=== PATIENT | male | born 2000 ===

== ENCOUNTER 2025-03-06 15:46 | Emergency (ER) | payer BC, SELFPAY ==
--- NOTE | ~2025-03-06 | CT_ITS ---
EXAMINATION: CTA brain carotid DATE: 03/06/2025 18:21 INDICATION: right sided neck pain TECHNIQUE: Computed tomographic angiography (CTA) of the head was performed without and with 100 mL O mnipaque-350 intravenous contrast. CTA of the neck was performed with intravenous contrast. Automated exposure control and iterative reconstruction technique were employed. The dose-length product was 1 734.05 mGy-cm. Maximum intensity projection and volume rendered 3D-reconstructions were created by patricia taylor technologist on a separate workstation. COMPARISON: None. FINDINGS: CT BRAIN: No acute large vessel infarct, intracranial hemorrhage, mass, or hydrocephalus. CTA HEAD: No large vessel occlusion, aneurysm, high flow vascular malformation, nidus or extravasation. Symmetr ic parenchymal enhancement. Patent cerebral veins. CTA NECK: Aortic arch and proximal great vessels: Bovine arch. Right common carotid, carotid bifurcation, and internal carotid artery: No plaque.There is 0% stenosi s of the proximal right internal carotid artery relative to normal distal artery lumen diameter (NASC ET criteria). Left common carotid, carotid bifurcation, and internal carotid artery: No plaque.There is 0% stenosis of the proximal left internal carotid artery relative to normal distal artery lumen diameter (NASCET criteria). Vertebral arteries: No significant plaque or stenosis. Vertebral arteries co-dominant. Other findings: Accessory ossicle versus old fracture fragment at the tip of the dens. IMPRESSION: No acute intracranial process. No large vessel intracranial occlusion, high-grade intracranial stenosis, or aneurysm. No carotid or vertebral artery occlusion, dissection, or significant stenosis. Reviewed, dictated and finalized at location K. IMPRESSION: No acute intracranial process. No large vessel intracranial occlusion, high-grade intracranial stenosis, or an eurysm. No carotid or vertebral artery occlusion, dissection, or significant stenosis.
--- OUTSIDE RECORDS SUMMARY | 2025-03-06 15:48 | XMS_ITS | Encounter Summary ---
Author Organization [facility] Address [address] [place] [address] Care Team Providers Care Scrap Baller Name Role Phone Unavailable Primary Care Provider Unavailabl e Encounter Details Date Type Department Care Team (Late st Contact Info) Description 2000 Outpatient Historical [facility] Pediatrics - [facility] 2002 [address] [facility] [address] [address] Agata Jessica MD 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
--- OUTSIDE RECORDS SUMMARY | 2025-03-06 15:48 | XMS_ITS | Continuity of Care Document ---
Author Organization [facility] Address [address] [place] [address] [address] [place] [address] Phone Care Team Providers Care School Administrator Name Role Phone Jessica Zeng Unavailable Unavailable Advance Directives Directive Yes / No Effective Date File Name No Information Encounters Encounter Description Practice Location Reason(s) For Visit Diagnoses Date Provider Providers Copied on Encounter [facility], [address] [place] [address] [address], [place], [place], [id number], [place] tel:[phone] [facility] No Information [address] [facility] [place] , [address], [place], [address], [place]. tel:[phone] Family History Family Member Type Diagnosis Age At Onset No Information Payers Payer name Insurance type Covered alliance party ID Authoriza tion(s) No Information Social History Type Description Quantity Date Captured Comments Sex Male Smoking Status No Information Chief Complaint And Reason For Visit No Information Reason For Referral Reason For Referral No Information History Of Present Illness Encounter Date Complaint History Of Prese nt Illness No Information Functional Status Date Functional Assessmen t No Information Instructions Date Instruction Additional Infor mation No Information Assessments Type Assessment Date No Information Patient Care Teams Name Effective Dates (start - stop) Status Members No Information
--- OUTSIDE RECORDS SUMMARY | 2025-03-06 15:48 | XMS_ITS | Clinical Summary ---
Author Organization [facility] Address [address] [place] [address] Care Team Providers Care Pluck Trimmer Name Role Phone Eduardo Dubose MD Primary Care Provider Allergies No known active allergies Medications HYDROcodone-madhav taminophen (NORCO) 5-325 mg per tabletIndicatio ns:Pain Take 1 tablet by mouth every 4 (four) hours as needed for pain 20 tablet 9 Active Additional Information Patient not taking.Reported on 08/01/2022 Active Problems No known active problems Medical History Medical History Date Comments Motion sickness on roller coaste rs and driving occasionally Social History Tobacco Use Types Packs/Day Years Used Date Smoking Tobacco: Never Smokeless Tobacco: Never Alcohol Use Standard Drinks/Week Comments Yes 0 (1 standard drink = 0.6 oz pur e alcohol) rarely 1 or 2 drinks a month Personal Safety Answer Date Recorded Getting School Help Needed Not on file 08/19 Sex and Gender Information Value Date Recorded Sex Assigned at Not on file Legal Sex Male 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 GLUING MACHINE OPERATOR Gender Identity Not on file Sexual Orientation Not on file Obstetrics History Last Filed Vital Signs Vital Sign Reading Time Taken Comments Blood Pressure 100/60 08/01/2022 10:25 AM ELECTRONIC GLUING MACHINE OPERATOR Pulse 70 08/01/2022 10:25 AM ELECTRONIC GLUING MACHINE OPERATOR Temperature 36.5 C (97.7 F) 08/01/2022 10:25 AM ELECTRONIC GLUING MACHINE OPERATOR Respiratory Rate 16 08/01/2022 10:25 AM ELECTRONIC GLUING MACHINE OPERATOR Oxygen Saturation 98% 08/01/2022 10:25 AM ELECTRONIC GLUING MACHINE OPERATOR Inhaled Oxygen Concentration - - Weight 86.2 kg (190 lb) 08/01/2022 10:25 AM ELECTRONIC GLUING MACHINE OPERATOR Height 182.9 cm (6') 08/01/2022 10:25 AM ELECTRONIC GLUING MACHINE OPERATOR Body Mass Index 25.77 08/01/2022 10:25 AM ELECTRONIC GLUING MACHINE OPERATOR Plan of Treatment Health Maintenance Due Date Last Done Comments Depression Screening 2000 Hepatitis C Screening 2000 DTaP/Tdap/Td Vaccine (2 - Tdap) 02/10/2011 2 Varicella Vaccines (1 of 2 - 13+ 2-dose series) 02/10/2013 HPV Vaccines (1 - Male 3-dos e series) 02/10/2015 Hepatitis B Screening 02/10/2018 Regular Well Visit/Exam 18-64 02/10/2018 Influenza Vaccine (#1) 2025 Pneumococcal vaccine <65 Aged Out No longer eligible based on patient's age to complete this topic Medical Devices Implanted Type Area Aircraft Cleaning Supervisor Device Identifier Shelf Expiration Date Model / Serial / Lot [employer]art[employer] Inc A-5200.10 Aptus 1.5mm 10mm Washer Twist Drill Hexadrive 4 Hand Cortical - [id number] Implanted:Qty: 1 on 03/18/2019 by Francisco Simmons MD at [facility] Right: Middle Finger [employer] Inc A-5200.10 / / Screw Bone 1.5mm 11mm Aptus Ti Herber Hand Hexadrive 4 - [id number] Implanted:Qty: 1 on 03/18/2019 by Francisco Simmons MD at [facility] [place] Right: Middle Finger [employer] A-5200.11 / / Insurance [employer] [facility] ANTHEM PREFERRED [employer] [place] [employer] [place] PATY PREFERRED Advance Directives For more information, please contact: [phone] * Full Code (Latest Code Status on File) Date Activated Date Inactivated Comments 03/18/2019 1:23 PM 03/18/2019 6:35 PM Care Teams Pluck Trimmer Relationship Specialty Start Date End Date Eduardo Dubose MD [address] [address] PCP - General 03/10/19
--- OUTSIDE RECORDS SUMMARY | 2025-03-06 15:48 | XMS_ITS | Referral Summary ---
Author Organization [facility] Address [address] [place] [address] Care Team Providers Care Negative Spotter Name Role Phone Eduardo Dubose MD Primary Care Provider Allergies No known active allergies Medications HYDROcodone-madhav taminophen (NORCO) 5-325 mg per tabletIndicatio ns:Pain Take 1 tablet by mouth every 4 (four) hours as needed for pain 20 tablet 9 Active Additional Information Patient not taking.Reported on 08/01/2022 Active Problems No known active problems Social History Tobacco Use Types Packs/Day Years [...] on file Legal Sex Male 4:01 AM BUFFERER Gender Identity Not on file Sexual Orientation Not on file Last Filed Vital Signs Vital Sign Reading Time Taken Comments Blood Pressure 100/60 08/01/2022 10:25 AM BUFFERER Pulse 70 08/01/2022 10:25 AM BUFFERER Temperature 36.5 C (97.7 F) 08/01/2022 10:25 AM BUFFERER Respiratory Rate 16 08/01/2022 10:25 AM BUFFERER Oxygen Saturation 98% 08/01/2022 10:25 AM BUFFERER Inhaled Oxygen Concentration - - Weight 86.2 kg (190 lb) 08/01/2022 10:25 AM BUFFERER Height 182.9 cm (6') 08/01/2022 10:25 AM BUFFERER Body Mass Index 25.77 08/01/2022 10:25 AM BUFFERER Plan of Treatment Not on file Medical Devices Implanted Type Area Senior Java Developer Device Identifier Shelf Expiration Date Model / Serial / Lot [employer] Inc A-5200.10 Aptus 1.5mm 10mm Washer Twist Drill Hexadrive 4 Hand Cortical - [id number] Implanted:Qty: 1 on 03/18/2019 by Francisco Simmons MD at [facility] Right: Middle Finger [employer] A-5200.10 / / Screw Bone 1.5mm 11mm Aptus Ti Herber Hand Hexadrive 4 - [id number] Implanted:Qty: 1 on 03/18/2019 by Francisco Simmons MD at [facility] [place] Right: Middle Finger [employer] Inc A-5200.11 / / Insurance [facility] [employer] [place] [employer] [place] ANTHEM PREFERRED Advance Directives For more information, please contact: [phone] * Full Code (Latest Code Status on File) Date Activated Date Inactivated Comments 03/18/2019 1:23 PM 03/18/2019 6:35 PM Care Teams Negative Spotter Relationship Specialty Start Date End Date Eduardo Dubose MD [address] [facility] [address] [place] [address] PCP - General 03/10/19
--- OUTSIDE RECORDS SUMMARY | 2025-03-06 15:48 | XMS_ITS | Clinical Summary ---
Author Organization [facility] Address [address] [place] [address] Care Team Providers Care Nutrition Coordinator Name Role Phone Unavailable Primary Care Provider Unavailabl e Medications No known medications Active Problems No known active problems Social History Tobacco Use Types Packs/Day Years Used Date Smoking Tobacco: Never Smokeless Tobacco: Never Tobacco Cessation:Counseling Given: No Sex and Gender Information Value Date Recorded Sex Assigned at Not on file Legal Sex Male 3:19 AM LEARNING DISABILITIES TEACHER Gender Identity Not on file Sexual Orientation Not on file Last Filed Vital Signs Vital Sign Reading Time Taken Comments Blood Pressure 107/72 09/03/2019 2:47 PM LEARNING DISABILITIES TEACHER Pulse 70 09/03/2019 2:47 PM LEARNING DISABILITIES TEACHER Temperature - - Respiratory Rate - - Oxygen Saturation - - Inhaled Oxygen Concentration - - Weight 74.8 kg (165 lb) 09/03/2019 2:47 PM LEARNING DISABILITIES TEACHER Height 182.9 cm (6') 09/03/2019 2:47 PM LEARNING DISABILITIES TEACHER Body Mass Index 22.38 09/03/2019 2:47 PM LEARNING DISABILITIES TEACHER Plan of Treatment Health Maintenance Due Date Last Done Comments HPV VACCINES (1 - Male 3-dose series) 02/10/2015 DTAP/TDAP/TD VACCINES (1 - Tdap) 02/10/2019 HEPATITIS B VACCINES (1 of 3 - 19+ 3-dose series) 01/30 INFLUENZA VACCINE (#1) 2025 Insurance BCBS BLUE ACCESS/TRUE BLUE PPO
--- OUTSIDE RECORDS SUMMARY | 2025-03-06 15:48 | XMS_ITS | Encounter Summary ---
Author Organization [facility] Address [address] [facility] Attn: [place] [address] Care Team Providers Care Community Sports Coordinator Name Role Phone Unavailable Primary Care Provider Unavailabl e Encounter Details Date Type Department Care Team (Late st Contact Info) Description 2000 Inpatient Historical Agata Jessica MD [address] [place] [address] Single liveborn, born in hospital, delivered without mention of delivery (Primary Dx) Social History Tobacco Use Types Packs/Day Years Used Date Smoking Tobacco: Never Assessed Sex and Gender Information Value Date Recorded Sex Assigned at Not on file 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
--- OUTSIDE RECORDS SUMMARY | 2025-03-06 15:48 | XMS_ITS | Encounter Summary ---
Author Organization [facility] Address [address] [place] [address] Care Team Providers Care Silverer Name Role Phone Unavailable Primary Care Provider Unavailabl e Encounter Details Date Type Department Care Team (Late st Contact Info) Description 2000 Outpatient Historical [facility] FOUNDRY ENGINEER - Medical [facility] [address] [facility] [address] [phone] Rylan Mora MD [address] [place] [address] Social History Tobacco Use Types Packs/Day Years Used Date Smoking Tobacco: Never Assessed Sex and Gender Information Value Date Recorded Sex Assigned at Not on file 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
[2025-03-06 15:51] VITALS: BP 122/70; PULSE 62; RESP 16; TEMP 36.6; O2SAT 100
--- OUTSIDE RECORDS SUMMARY | 2025-03-06 16:23 | XMS_ITS | Continuity of Care Document ---
Author Organization [facility] Address [address] [place] [address] [address] [place] [address] Phone Care Team Providers Care Credit Product Analyst Name Role Phone Jessica Zeng Unavailable Unavailable Advance Directives Directive Yes / No Effective Date File Name No Information Encounters Encounter Description Practice Location Reason(s) For Visit Diagnoses Date Provider Providers Copied on Encounter [facility], [address] [place] [address] [address], [place], [place], [address], [place] tel:[phone] [facility] [place] No Information [address] [facility] [place] , [address], [place], [address], [place]. tel:[phone] Family History Family Member Type Diagnosis Age At Onset No Information Payers Payer name Insurance type Covered republican ID Authoriza tion(s) No Information Social History [...]
--- OUTSIDE RECORDS SUMMARY | 2025-03-06 16:23 | XMS_ITS | Clinical Summary ---
Author Organization [facility] Address [address] [place] [address] Care Team Providers Care Social Security Benefits Interviewer Name Role Phone Eduardo Dubose MD Primary [...] on file Legal Sex Male 4:01 AM SAP ABAP DEVELOPER Gender Identity Not on file Sexual Orientation Not on file Obstetrics History Last Filed Vital Signs Vital Sign Reading Time Taken Comments Blood Pressure 100/60 08/01/2022 10:25 AM SAP ABAP DEVELOPER Pulse 70 08/01/2022 10:25 AM SAP ABAP DEVELOPER Temperature 36.5 C (97.7 F) 08/01/2022 10:25 AM SAP ABAP DEVELOPER Respiratory Rate 16 08/01/2022 10:25 AM SAP ABAP DEVELOPER Oxygen Saturation 98% 08/01/2022 10:25 AM SAP ABAP DEVELOPER Inhaled Oxygen Concentration - - Weight 86.2 kg (190 lb) 08/01/2022 10:25 AM SAP ABAP DEVELOPER Height 182.9 cm (6') 08/01/2022 10:25 AM SAP ABAP DEVELOPER Body Mass Index 25.77 08/01/2022 10:25 AM SAP ABAP DEVELOPER Plan of Treatment Health Maintenance Due Date [...] this topic Medical Devices Implanted Type Area Wood Buffer Device Identifier Shelf Expiration Date Model / Serial / Lot Medartis Inc A-5200.10 Aptus 1.5mm 10mm Washer Twist Drill Hexadrive 4 Hand Cortical - [id number] Implanted:Qty: 1 on 03/18/2019 by Francisco Simmons MD at [facility] Right: Middle Finger Med[employer] Inc A-5200.10 / / Screw Bone 1.5mm 11mm Aptus Ti Herber Hand Hexadrive 4 - [id number] Implanted:Qty: 1 on 03/18/2019 by Francisco Simmons MD at [facility] [place] Right: Middle Finger [employer] Inc A-5200.11 / / Insurance [employer] [facility] ANTHEM PREFERRED [facility] [place] [facility] [facility] [place] PATY PREFERRED Advance Directives For more information, please contact: [phone] * Full Code (Latest Code Status on File) Date Activated Date Inactivated Comments 03/18/2019 1:23 PM 03/18/2019 6:35 PM Care Teams Social Security Benefits Interviewer Relationship Specialty Start Date End Date Eduardo Dubose MD [address] [address] PCP - General 03/10/19
--- OUTSIDE RECORDS SUMMARY | 2025-03-06 16:23 | XMS_ITS | Encounter Summary ---
Author Organization [facility] Address [address] [place] [address] Care Team Providers Care Real Estate Asset Manager Name Role Phone Unavailable Primary Care Provider Unavailabl e Encounter Details Date Type Department Care Team (Late st Contact Info) Description 2000 Outpatient Historical [facility] GOLF CART ATTENDANT - Medical [facility] [address] [facility] [place] [address] [phone] Rylan Mora MD [address] [place] [address] Social History Tobacco Use Types Packs/Day Years Used Date Smoking Tobacco: Never Assessed Sex and Gender Information Value Date Recorded Sex Assigned at Not on file Legal Sex Male 3:19 AM ACCOUNTING METHODS ANALYST Gender Identity Not on file Sexual Orientation Not on file documented as of this encounter Plan of Treatment Not on file documented as of this encounter Visit Diagnoses Not on filedocumented in this encounter
--- OUTSIDE RECORDS SUMMARY | 2025-03-06 16:23 | XMS_ITS | Encounter Summary ---
Author Organization [facility] Address [address] [place] [address] Care Team Providers Care Administration Professional Name Role Phone Unavailable Primary Care Provider Unavailabl e Encounter Details Date Type Department Care Team (Late st Contact Info) Description 2000 Outpatient Historical [facility]s - [facility] 2002 [address] [facility] [address] [address] Agata Jessica MD 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
--- OUTSIDE RECORDS SUMMARY | 2025-03-06 16:23 | XMS_ITS | Encounter Summary ---
Author Organization [facility] Address [address] [facility] Attn: [place] [address] Care Team Providers Care Data Collection Technician Name Role Phone Unavailable Primary Care Provider Unavailabl e Encounter Details Date Type Department Care Team (Late st Contact Info) Description 2000 Inpatient Historical Agata Jessica MD [address] [place] [phone] Single liveborn, born in hospital, delivered without mention of delivery (Primary Dx) Social History Tobacco Use Types Packs/Day Years Used Date Smoking Tobacco: Never Assessed Sex and Gender Information Value Date Recorded Sex Assigned at Not on file 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
--- OUTSIDE RECORDS SUMMARY | 2025-03-06 16:23 | XMS_ITS | Referral Summary ---
Author Organization [facility] Address [address] [place] [address] Care Team Providers Care Supervisor Brew House Name Role Phone Eduardo Dubose MD Primary Care Provider [phone] Allergies No known active allergies Medications HYDROcodone-madhav [...] on file Legal Sex Male 4:01 AM SPORTS ADMINISTRATOR Gender Identity Not on file Sexual Orientation Not on file Last Filed Vital Signs Vital Sign Reading Time Taken Comments Blood Pressure 100/60 08/01/2022 10:25 AM SPORTS ADMINISTRATOR Pulse 70 08/01/2022 10:25 AM SPORTS ADMINISTRATOR Temperature 36.5 C (97.7 F) 08/01/2022 10:25 AM SPORTS ADMINISTRATOR Respiratory Rate 16 08/01/2022 10:25 AM SPORTS ADMINISTRATOR Oxygen Saturation 98% 08/01/2022 10:25 AM SPORTS ADMINISTRATOR Inhaled Oxygen Concentration - - Weight 86.2 kg (190 lb) 08/01/2022 10:25 AM SPORTS ADMINISTRATOR Height 182.9 cm (6') 08/01/2022 10:25 AM SPORTS ADMINISTRATOR Body Mass Index 25.77 08/01/2022 10:25 AM SPORTS ADMINISTRATOR Plan of Treatment Not on file Medical Devices Implanted Type Area Job Coach Device Identifier Shelf Expiration Date Model / Serial / Lot Medartis Inc A-5200.10 Aptus 1.5mm 10mm Washer Twist Drill Hexadrive 4 Hand Cortical - [id number] Implanted:Qty: 1 on 03/18/2019 by Francisco Simmons MD at [facility] Right: Middle Finger [employer] Inc A-5200.10 / / Screw Bone 1.5mm 11mm Aptus Ti Herber Hand Hexadrive 4 - [id number] Implanted:Qty: 1 on 03/18/2019 by Francisco Simmons MD at [facility] [place] Right: Middle Finger [employer] Inc A-5200.11 / / Insurance [facility] [place] [place] ANTHEM PREFERRED Advance Directives For more information, please contact: [phone] * Full Code (Latest Code Status on File) Date Activated Date Inactivated Comments 03/18/2019 1:23 PM 03/18/2019 6:35 PM Care Teams Supervisor Brew House Relationship Specialty Start Date End Date Eduardo Dubose MD [address] [facility] [address] [place] [address] PCP - General 03/10/19
--- OUTSIDE RECORDS SUMMARY | 2025-03-06 16:23 | XMS_ITS | Clinical Summary ---
Author Organization [facility] Address [address] [place] [address] Care Team Providers Care Underground Bolting Machine Operator Name Role Phone Unavailable Primary Care Provider Unavailabl e Medications No known medications Active Problems No known active problems Social History Tobacco Use Types Packs/Day Years Used Date Smoking Tobacco: Never Smokeless Tobacco: Never Tobacco Cessation:Counseling Given: No Sex and Gender Information Value Date Recorded Sex Assigned at Not on file Legal Sex Male 3:19 AM MANUFACTURING ENGINEERING INTERN Gender Identity Not on file Sexual Orientation Not on file Last Filed Vital Signs Vital Sign Reading Time Taken Comments Blood Pressure 107/72 09/03/2019 2:47 PM MANUFACTURING ENGINEERING INTERN Pulse 70 09/03/2019 2:47 PM MANUFACTURING ENGINEERING INTERN Temperature - - Respiratory Rate - - Oxygen Saturation - - Inhaled Oxygen Concentration - - Weight 74.8 kg (165 lb) 09/03/2019 2:47 PM MANUFACTURING ENGINEERING INTERN Height 182.9 cm (6') 09/03/2019 2:47 PM MANUFACTURING ENGINEERING INTERN Body Mass Index 22.38 09/03/2019 2:47 PM MANUFACTURING ENGINEERING INTERN Plan of Treatment Health Maintenance Due Date Last Done Comments HPV VACCINES (1 - Male 3-dose series) 02/10/2015 DTAP/TDAP/TD VACCINES (1 - Tdap) 02/10/2019 HEPATITIS B VACCINES (1 of 3 - 19+ 3-dose series) 01/30 INFLUENZA VACCINE (#1) 2025 Insurance BCBS BLUE ACCESS/TRUE BLUE PPO
--- NOTE | 2025-03-06 16:48 | ED.NECK ---
HPI - Neck Pain/Injury General Chief Complaint: Neck Pain/Injury Stated Complaint: neck pain Time Seen by Provider: 03/06/25 16:04 History of Present Illness HPI Narrative: 25-year-old male presents emergency department with family at bedside for right-sided neck pain. Patient states he woke up this morning and began developing right-sided neck pain. He describes the pain as a jolting sensation that radiates down his right arm. He states it is worse with right-sided neck rotation. He states he attempted to crack his neck which made the pain much worse and caused him to feel nauseated and lightheaded like he was going to pass out. Patient then took a nap and states the pain was worse after the nap. He denies injury or trauma. Denies focal weakness, bowel or bladder changes, saddle anesthesia. Related Data Allergies Allergy/AdvReac Type Severity Reaction Status Date / Time No Known Allergies Allergy Verified 03/06/25 15:55 Review of Systems Review of Systems: All systems reviewed & are unremarkable except as noted in HPI and below Exam Narrative: GENERAL: Well-appearing, well-nourished, and in no acute distress. HEAD: Normocephalic, atraumatic. EYES: PERRLA and EOMI. ENT: Nares clear, no rhinorrhea or epistaxis. Mucous membranes moist. NECK: Palpable muscle spasm to the right trapezius. Patient holding his right shoulder more elevated when compared to the left. Spasm increases when patient turns his neck to the right reports his right ear to right shoulder. No midline cervical spinous tenderness, crepitus, step-offs or deformities. CHEST: Clear to auscultation. No respiratory distress. HEART: Regular rate and rhythm. No murmur heard. Normal peripheral pulses. EXTREMITIES: Normal range of motion. No edema. SKIN: Warm, dry, no rash. NEURO: No focal deficits. Alert and oriented x4. Cranial nerves 2 through 12 grossly intact. Strength 5/5 in BUE and BLE. Sensation intact throughout. Course Vital Signs Vital signs: Vital Signs Temperature 97.9 F 03/06/25 15:51 Pulse Rate 62 03/06/25 15:51 Respiratory Rate 16 03/06/25 15:51 Blood Pressure 122/70 03/06/25 15:51 Pulse Oximetry 100 03/06/25 15:51 Oxygen Delivery Room Air 03/06/25 15:51 Temperature 97.9 F 03/06/25 15:51 Pulse Rate 62 03/06/25 15:51 Respiratory Rate 16 03/06/25 15:51 Blood Pressure 122/70 03/06/25 15:51 Pulse Oximetry 100 03/06/25 15:51 Oxygen Delivery Room Air 03/06/25 15:51 MDM - Neck Pain/Injury MDM Narrative Medical decision making narrative: 25-year-old presents emergency department for right-sided neck pain that started this morning after waking up. No injury or trauma. States he attempted to pop his neck and then felt as though he was going to pass out. He reports worsening pain with right-sided rotation of his neck. Vital signs are stable. Exam is notable for the above. 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 His lab work shows mild leukocytosis of 10.9. His chemistries are largely unremarkable. EKG shows sinus bradycardia with rate of 51 with sinus arrhythmia, normal NV interval, QRS duration, normal QTC, no ischemic changes. Patient is young and lean and I suspect his bradycardia is due to conditioning. CTA of the brain and carotid shows no acute intracranial process. There is no large vessel intracranial occlusion, high-grade intracranial stenosis or aneurysm. There is no carotid or vertebral artery occlusion, dissection or significant stenosis. Patient updated on results. He received Tylenol, Valium and lidocaine patch with improvement. Again presentation is consistent with spasmodic torticollis. Will send Flexeril, ibuprofen and lidocaine patches to the pharmacy. Advised follow-up with PCP, warm compresses and strict ED return precautions. He is agreeable with the plan verbalized understanding. Discharged in stable condition. Lab Data 03/06/25 17:22 03/06/25 17:22 Labs: Lab Results 03/06/25 03/06/25 Range/Units 17:22 17:22 WBC 10.9 H (4.5-10.0) K/mm3 RBC 5.45 (4.6-6.20) M/mm3 Hgb 16.3 (14.0-18.0) g/dL Hct 48.8 (42.0-52.0) % MCV 89.5 (80-100) fl MCH 29.9 (26-34) pg MCHC 33.4 (32-36) g/dl RDW 12.9 (11.5-14.5) % Plt Count 207 (150-375) k/mm3 MPV 11.1 H (7.4-10.4) fl Immature Gran % (Auto) 0.6 H (0-0.5) % Neut % (Auto) 81.8 H (45.5-73.1) % Lymph % (Auto) 9.8 L (18.3-44.2) % [place] % (Auto) 6.1 (2.6-8.5) % Eos % (Auto) 1.1 (0-4.4) % Baso % (Auto) 0.6 (0.2-1.2) % Lymph # (Auto) 1.07 (0.9-3.2) K/mm3 [place] # (Auto) 0.7 H (0.1-0.6) K/mm3 Eos # (Auto) 0.1 (0-0.3) K/mm3 Baso # (Auto) 0.1 (0.0-0.1) K/mm3 Abs Immat Gran (auto) 0.07 H (0.00-0.031) K/mm3 Absolute Neuts (auto) 8.9 H (1.3-6.7) K/mm3 Absolute Nucleated RBC 0.000 (0.0-0.012) K/mm3 Nucleated RBC % 0.0 (0.0-0.2) % PT 13.1 (11.1-14.7) Seconds INR 1.0 APTT 24.1 (22.3-36.8) Seconds Sodium 137 (137-145) mmol/L Potassium 4.0 (3.4-5.0) mmol/L Chloride 105 (98-107) mmol/L Carbon Dioxide 24 (22-30) mmol/L Anion Gap 8 (4-12) mmol/L BUN 14 (9-20) mg/dL Creatinine 1.05 (0.7-1.3) mg/dL Estim Creat Clear Calc 105 ml/min Estimated GFR > 60 (59 - ) Glucose 133 H (65-110) mg/dL Calcium 9.6 (8.4-10.2) mg/dL Total Bilirubin 0.3 (0.2-1.3) mg/dL AST 40 (17-59) U/L ALT 25 (6-50) U/L Alkaline Phosphatase 32 L (38-126) U/L Troponin I < 0.012 Cancelled (0.000-0.034) ng/mL Total Protein 7.2 (6.3-8.2) g/dL Albumin 4.4 (3.5-5.1) g/dL Discharge Plan Discharge Clinical Impression: Spasmodic torticollis Patient Disposition: Home Condition: Stable Instructions: Antibiotic Form, Spasmodic Torticollis (ED) Additional Instructions: Please take medications as directed. Follow-up closely with her primary care provider. Use warm compresses and gentle massage as discussed. Return to the emergency department if you develop a fever, weakness to your extremities, numbness in your groin, lose control of her bowel or bladder, or other concerning symptoms. Patient Language: [place] Prescriptions: New cyclobenzaprine 10 mg tablet 10 mg PO TID PRN (Reason: muscle spasm) Qty: 14 0RF ibuprofen 800 mg tablet 800 mg PO TID PRN (Reason: pain) Qty: 20 0RF lidocaine 5 % adhesive patch,medicated 1 patch topical DAILY Qty: 15 0RF Rx Instructions: leave on most painful area for up to 12 hrs. do not use more than 1 patch in a 24-hour period. Follow-up/Referrals: Garo,MD Ced [Primary Care Provider] -
--- NOTE | 2025-03-06 16:53 | ECG_ITS ---
Test Date: 2025-03-06 17:14:11 Measurements Intervals Romance Rate: 51 P: 55 MT: 147 QRS: 81 QRSD: 105 T: 65 QT: 383 QTc: 356 Interpretive Statements SINUS BRADYCARDIA WITH SINUS ARRHYTHMIA No previous ECG available for comparison Electronically Signed On 03-07-2025 22:32:00 CDT by Sari Mims M.D.
[2025-03-06] MEDS: ACETAMINOPHEN 500 MG TABLET 1000 MG PO (17:10)
[2025-03-06] MEDS: diazePAM INJ (*CRX) 10 MG/2 ML SYRINGE 5 MG IV PUSH (17:10)
[2025-03-06] MEDS: LIDOCAINE 5% PATCH 1 PATCH TRANSDERM (17:11)
[2025-03-06 17:36] LABS: Hematocrit 48.8 % (42.0-52.0); Hemoglobin 16.3 g/dL (14.0-18.0); Immature Granulocyte Percent A 0.6 % (0-0.5); Lymphocytes Absolute Auto 1.07 K/mm3 (0.9-3.2); Mean Corpuscular HGB Conc 33.4 g/dl (32-36); Mean Corpuscular Hemoglobin 29.9 pg (26-34); Mean Corpuscular Volume 89.5 fl (80-100); Nucleated Red Blood Cells Absolute Auto 0.000 K/mm3 (0.0-0.012); Nucleated Red Blood Cells Perc 0.0 % (0.0-0.2); Platelet Count Result 207 k/mm3 (150-375); Red Blood Count 5.45 M/mm3 (4.6-6.20); White Blood Count 10.9 K/mm3 (4.5-10.0)
[2025-03-06 17:50] LABS: Alanine Aminotransferase 25 U/L (6-50); Albumin Level 4.4 g/dL (3.5-5.1); Alkaline Phosphatase 32 U/L (38-126); Anion Gap 8 mmol/L (4-12); Aspartate Amino Transferase 40 U/L (17-59); Bilirubin,Total 0.3 mg/dL (0.2-1.3); Blood Urea Nitrogen 14 mg/dL (9-20); Calcium 9.6 mg/dL (8.4-10.2); Carbon Dioxide 24 mmol/L (22-30); Chloride 105 mmol/L (98-107); Estimated CRCL calculation 105 ml/min; Estimated Glomerular Filt Rate > 60; Glucose 133 mg/dL (65-110); INR 1.0; Potassium 4.0 mmol/L (3.4-5.0); Prothrombin Time 13.1 Seconds (11.1-14.7); Sodium 137 mmol/L (137-145); Total Protein 7.2 g/dL (6.3-8.2)
[2025-03-06 17:51] LABS: Partial Thromboplastin Time 24.1 Seconds (22.3-36.8)
[2025-03-06 18:02] LABS: Troponin I < 0.012 ng/mL (0.000-0.034)
[2025-03-06 19:22] VITALS: BP 126/84; PULSE 76; RESP 18; O2SAT 100
== END 2025-03-06 19:26 | disposition home or self-care (01) ==
PROVIDERS: Emergency Provider Physician Assistant; PCP Internal Medicine
DX: G24.3 Spasmodic torticollis (principal)
CPT/HCPCS: 36415; 70496; 70498; 80053; 84484; 85025; 85610; 85730; 93005; 96374; 99284; A9270; J3360; Q9967